=== PATIENT | male | born 1990 | race American Indian/Alaskan Native ===

== ENCOUNTER 2017-03-12 09:16 | Emergency (ER) | payer SELFPAY ==
[2017-03-12 10:00] VITALS: BP 138/83
[2017-03-12] MEDS ORDERED: FLEXERIL PO ONE (11:51)
[2017-03-12] MEDS ORDERED: TORADOL IM ONE (11:51)
--- NOTE | 2017-03-12 12:04 | Emergency Department Report ---
ED Neck Pain/Injury HPI - General Chief Complaint: Neck Pain/Injury Stated Complaint: NECK PROBLEMS CAN NOT TURN, HEADACHE Time Seen by Provider: 03/12/17 11:50 Mode of arrival: Ambulatory Limitations: No Limitations - History of Present Illness Initial Comments: pt is 26 y/o aam with nmh who presents for left sided neck and pain as I just woke up like this 2 days ago. pt advises that he slept in usual fasion no fall no injury no trauma pt denies fever no chills no neck stiffness no dizziness no headache , pt has no attempted otc nsaids , pain is exacerbated by movement and neck rotation to left , pain is relieved by rest and pillow support. MD Complaint: neck pain Onset/Timin -: days(s) Place: home Radiation: left lateral, left shoulder Severity: moderate Severity scale (0 -10): 5 Quality: aching, other ("spasm and tightness" ) Consistency: constant Improves With: rest supine, remaining still Worsens With: movement of neck Context: unknown Associated Symptoms: denies: headache, fever, numbness, tingling, weakness, difficulty walking, swollen glands, difficulty swallowing, nausea, vomiting Treatments Prior to Arrival: other - Related Data Previous Rx's Medication Instructions Recorded Last Taken Type Doxycycline [Vibramycin CAP] 100 mg PO BID #28 capsule 12/03/13 Unknown Rx Cyclobenzaprine [Flexeril] 10 mg PO TID PRN #30 tablet 03/12/17 Unknown Rx Naproxen [Naprosyn] 500 mg PO BID #60 tablet 03/12/17 Unknown Rx Allergies Allergy/AdvReac Type Severity Reaction Status Date / Time No Known Allergies Allergy Unverified 12/03/13 02:32 ED Review of Systems ROS: Stated complaint: NECK PROBLEMS CAN NOT TURN, HEADACHE Other details as noted in HPI Constitutional: denies: chills, fever Eyes: denies: eye pain, eye discharge, vision change ENT: denies: ear pain, throat pain Respiratory: denies: cough, shortness of breath, wheezing Cardiovascular: denies: chest pain, palpitations Endocrine: no symptoms reported Gastrointestinal: denies: abdominal pain, nausea, diarrhea Genitourinary: denies: urgency, dysuria Musculoskeletal: myalgia Skin: denies: rash, lesions Neurological: denies: headache, weakness, paresthesias Psychiatric: denies: anxiety, depression Hematological/Lymphatic: denies: easy bleeding, easy bruising ED Past Medical Hx - Past Medical History Previous Medical History?: Yes Hx HIV: Yes - Surgical History Past Surgical History?: Yes Additional Surgical History: Danie placement to right femur per pt. - Social History Smoking Status: Never Smoker Substance Use Type: Alcohol, Marijuana - Medications Home Medications: Home Medications Medication Instructions Recorded Confirmed Last Taken Type Doxycycline [Vibramycin CAP] 100 mg PO BID #28 capsule 12/03/13 Unknown Rx Cyclobenzaprine [Flexeril] 10 mg PO TID PRN #30 tablet 03/12/17 Unknown Rx Naproxen [Naprosyn] 500 mg PO BID #60 tablet 03/12/17 Unknown Rx ED Physical Exam - General Limitations: No Limitations General appearance: alert, in no apparent distress - Head Head exam: Present: atraumatic, normocephalic, normal inspection - Eye Eye exam: Present: normal appearance, PERRL, EOMI Pupils: Present: normal accommodation - ENT ENT exam: Present: normal exam, mucous membranes moist, TM's normal bilaterally , normal external ear exam - Neck Neck exam: Present: normal inspection, tenderness (no posterior vertebral point tenderness left lateral paraspinus muscle tenderness , chin to chest, chin right shoulder without pain , chin to left shoulder intact but painful, pt maintains full neck extension without pain ). Absent: lymphadenopathy, thyromegaly - Respiratory Respiratory exam: Present: normal lung sounds bilaterally. Absent: respiratory distress, chest wall tenderness - Cardiovascular Cardiovascular Exam: Present: regular rate, normal rhythm. Absent: systolic murmur, diastolic murmur, rubs, gallop - GI/Abdominal GI/Abdominal exam: Present: soft, normal bowel sounds - Rectal Rectal exam: Present: deferred - Extremities Exam Extremities exam: Present: normal inspection - Back Exam Back exam: Present: normal inspection, full ROM. Absent: tenderness, CVA tenderness (R), CVA tenderness (L), muscle spasm, paraspinal tenderness, vertebral tenderness - Neurological Exam Neurological exam: Present: alert, oriented X3, CN II-XII intact, normal gait, reflexes normal - Expanded Neurological Exam Expanded Patient oriented to: Present: person, place, time Speech: Present: fluid speech Cranial nerves: EOM's Intact: Normal, Gag Reflex: Normal, Tongue Deviation: Normal, Nystagmus: Normal, Facial Sensation: Normal, Facial Palsy with Forehead Movement: Normal, Facial Palsy without Forehead Movement: Normal Cerebellar function: Finger to Nose: Normal, Heel to Nathan: Normal, Romberg: Normal Upper motor neuron: Carlo Neglect: Normal, Pronator Drift: Normal, Babinski Sign : Normal, Sensory Extinction: Normal Sensory exam: Upper Extremity Light Touch: Normal, Upper Extremity Pin Prick: Normal, Upper Extremity Temperature: Normal, UE 2 Point Discrimination: Normal, Lower Extremity Light Touch: Normal, Lower Extremity Pin Prick: Normal Motor strength exam: RUE: 5, LUE: 5, RLE: 5, LLE: 5 DTR: bicep (R): 2+, bicep (L): 2+, tricep (R): 2+, tricep (L): 2+, knee (R): 2+ , knee (L): 2+, ankle (R): 2+, ankle (L): 2+ Best Eye Response (Ida): (4) open spontaneously Best Motor Response (Ida): (6) obeys commands Best Verbal Response (Sidney): (5) oriented Ida Total: 15 - Psychiatric Psychiatric exam: Present: normal affect, normal mood - Skin Skin exam: Present: warm, dry, intact, normal color. Absent: rash ED Course Vital Signs 03/12/17 03/12/17 09:56 12:28 Temperature 98.1 F Pulse Rate 54 L Respiratory 20 16 Rate Blood Pressure 138/83 O2 Sat by Pulse 100 Oximetry ED Medical Decision Making - Medical Decision Making pt is 26 y/o aam with nmh who presents for left sided neck and pain as I just woke up like this 2 days ago. pt advises that he slept in usual fasion no fall no injury no trauma pt denies fever no chills no neck stiffness no dizziness no headache , pt has no attempted otc nsaids , pain is exacerbated by movement and neck rotation to left , pain is relieved by rest and pillow support. exam: pt appears nontoxic no neck stiffness no fever a/o x 3 , there is no concern for meningitis, there no posterior vertebral point tenderness, mild left parapinus and neck muscle tenderness to deep palpation, ENT normal TMs clear, no erythema , nose: patent no polyps no discharge pharynx: no erythema no exudate no lesion no stridor, CN II-XII grossly intact there is no weakness no numbness no tinging no deformity no ecchymosis no erythema no fever. no loss or decrease in bowel or bladder function, pain is improved with nsaid and muscle relaxant. Critical care attestation.: If time is entered above; I have spent that time in minutes in the direct care of this critically ill patient, excluding procedure time. ED Disposition Clinical Impression: Neck muscle strain Qualifiers: Encounter type: initial encounter Qualified Code(s): S16.1XXA - Strain of muscle, fascia and tendon at neck level, initial encounter Disposition: - TO HOME OR SELFCARE Is pt being admited?: No Does the pt Need Aspirin: No Condition: Good Instructions: Cervical Spine Strain (ED), Neck Exercises (GEN) Prescriptions: Cyclobenzaprine [Flexeril] 10 mg PO TID PRN #30 tablet PRN Reason: Muscle Spasm Naproxen [Naprosyn] 500 mg PO BID #60 tablet Referrals: PRIMARY CARE, [Primary Care Provider] - 3-5 Days Forms: Work/School Release Form(ED) Time of Disposition: 12:41
== END 2017-03-12 13:18 | disposition home or self-care (01) ==
LOC: ED 09:16
DX: S16.1XXA Strain of muscle, fascia and tendon at neck level, initial encounter (principal); F17.200 Nicotine dependence, unspecified, uncomplicated; X58.XXXA Exposure to other specified factors, initial encounter; Y93.9 Activity, unspecified; Y92.9 Unspecified place or not applicable; Y99.9 Unspecified external cause status
CPT/HCPCS: 96372; 99282; J1885